=== PATIENT | male | born 1985 | race African-American/Black ===

== ENCOUNTER 2017-02-13 18:54 | Inpatient (IN) | payer OTHER ==
[~2017-02-13] VITALS: Ht 170.2 cm; Wt 158.8 kg
--- NOTE | ~2017-02-13 | O ---
[facility] [place] [address] OPERATIVE REPORT Name: CECILIA LEIVA Room #: 244-P [facility] IN M.R.#: [id number] Admission: 02/13/17 Attend Phys: Deven Cuellar MD Discharge: Date of : 83 Report #: [id number] THIS REPORT FOR: //name// CC: Alan Cuellar DATE OF SERVICE: 02/15/2017 PROCEDURE: Intraoral incision and drainage of right steamboat pilot space abscess, CPT CODE 71595. PREOPERATIVE DIAGNOSIS: Right steamboat pilot space abscess. POSTOPERATIVE DIAGNOSIS: Right steamboat pilot space abscess. SURGEON: Alan Bocanegra M.D. ANESTHESIA: General. ESTIMATED BLOOD LOSS: 20 mL. COMPLICATIONS: None. SPECIMENS: Pus was sent for culture, both aerobic, anaerobic, fungal and acid fast bacilli. FINDINGS: The patient was found to have a large abscess in the right steamboat pilot space in the area of the medial pterygoid. INDICATIONS: The patient is a 31-year-old gentleman who presented to the emergency room with complaint of increased throat pain and swelling. CT scan revealed a 2.5-cm abscess in the right steamboat pilot space. It is decided that he would benefit from incision and drainage of this and the risks, benefits and alternatives were discussed with him and his family and they agreed to proceed. DESCRIPTION OF PROCEDURE: After informed consent was obtained, the patient was taken to the operating room and placed in supine position. He underwent general anesthesia with endotracheal intubation. He was prepped and draped in the usual fashion and timeout was performed. The correct patient and procedure were identified. A Monica-Ronak retractor was gently inserted into the oral cavity, and the patient was placed into suspension. An 18-gauge needle was inserted just medial to the ramus of the mandible and aspirated, there was no return of pus; however, after withdrawal of the needle, there was immediate thick purulent material which extruded through the puncture site. This was cultured and sent off for microbiology. Following this, an incision was made at the puncture site [address] [address] OPERATIVE REPORT Name: CECILIA LEIVA Room #: 244-P [facility] IN M.R.#: [id number] Admission: 02/13/17 Attend Phys: Deven Cuellar MD Discharge: Date of : 83 Report #: [id number] of the needle using a 15 blade scalpel along the pterygomandibular raphe. A hemostat was then inserted into the incision and this was spread open into the abscess cavity. There was significant amount of pus, which was evacuated by applying pressure out through this incision. Once all the purulent material had been evacuated, the abscess cavity was copiously irrigated with bacitracin irrigation. Hemostasis was then achieved using suction cautery as well as by holding pressure. Once hemostasis was found to be adequate, all instrumentation was withdrawn from the patient. He was turned back over to the anesthesia service. There were no complications during the procedure and all counts were reported as correct. DISPOSITION: The patient will be transferred to the ICU and will remain intubated for airway protection due to airway swelling. He will remain on broad spectrum IV antibiotics and once cultures come back, the antibiotics can be narrowed down. He will work towards weaning and extubation over the next few days. <ELECTRONICALLY SIGNED> By: Alan Bocanegra MD 02/16/17 1503 [id number] Alan Bocanegra MD /nt
--- NOTE | ~2017-02-13 | D ---
[facility] [place] [address] DISCHARGE SUMMARY Name: CECILIA LEIVA Room #: 440-P [facility] IN M.R.#: [id number] Admission: 02/13/17 Attend Phys: Deven Cuellar MD Discharge: 02/17/17 Date of : 83 Report #: [id number] THIS REPORT FOR: //name// CC: Alan Cuellar DATE OF SERVICE: 02/17/2017 DISCHARGE DIAGNOSES: 1. 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 2. Hypertension. 3. Morbid obesity. 4. Hypothyroidism. CONSULTS: ENT. PROCEDURES: He had I and D of his mash filter press operator abscess on February 15 without any significant complications. HOSPTIAL COURSE: However, after the surgery, he was kept intubated for airway protection and monitoring in the ICU. The following day on the , he was extubated without problems. He was able to maintain his airway and started diet and did well with that. He has had no further fever or chills. His white count on admission was 21, but actually he is afebrile now and feeling much better and anxious to go home. Denies any other complaints. He will go home on clindamycin. His initial strep culture was negative, but his jaw cultures are negative at 24 hours. DISCHARGE DISPOSITION: To home. DISCHARGE PHYSICAL EXAMINATION: VITAL SIGNS: Temperature 98, pulse 62, blood pressure 135/50. GENERAL: He is awake, alert, answering questions appropriately, no acute respiratory distress. HEENT: Normocephalic. Right cheek is a little bit swollen, but he indicates this is much improved, he has got minimal pain, no drainage. Oropharynx is clear and airway patent. CARDIOVASCULAR: Regular rate and rhythm. No murmurs. LUNGS: Clear to auscultation bilaterally. No crackles or wheezes. ABDOMEN: Soft, no distention or tenderness. EXTREMITIES: No edema. NEUROLOGIC: Nonfocal. DISCHARGE MEDICATIONS: Clindamycin 450 p.o. t.i.d. for 10 days, Lactinex 1 p.o. daily, [place] p.r.n., lisinopril 2.5 daily, Synthroid 88 mcg daily, vitamin D [address] [address] DISCHARGE SUMMARY Name: CECILIA LEIVA Room #: 440-[facility] IN M.R.#: [id number] Admission: 02/13/17 Attend Phys: Deven Cuellar MD Discharge: 02/17/17 Date of : 83 Report #: [id number] 1000 units daily, folic acid 1 daily. DIET: Regular diet as tolerated. ACTIVITY: As tolerated. FOLLOWUP: With primary care in 1 week with repeat labs. Follow up with ENT in 1 week and to seek immediate medical attention if symptoms worsen, recur or if he has any significant medical concerns. Discharge plan took 32 minutes. I explained to him the discharge diagnoses, treatment plan and appropriate followup in detail and he had no further questions. By: [id number] Kristyn Butt MD /nt
--- NOTE | ~2017-02-13 | HC ---
[facility] [place] [address] CONSULTATION Name: CECILIA LEIVA Room #: 440-P [facility] IN ..#: [id number] Admission: 02/13/17 Attend Phys: Deven Cuellar MD Discharge: 02/17/17 Date of : 83 Report #: [id number] THIS REPORT FOR: //name// CC: Alan Cuellar PRIMARY CARE PHYSICIAN: Dr. Indio Sousa. REFERRAL PHYSICIAN: Dr. Deven Cuellar. REASON FOR REFERRAL: Ventilator management. HISTORY OF PRESENT ILLNESS: The patient is a 32-year-old white male who presents to the Emergency Room with swelling and pain on the right side of the neck. He was found to have parapharyngeal abscess. The patient then went to the OR for incision and drainage of the right stay cutter space abscess. Postoperatively, the patient was electively left on a ventilator overnight. A pulmonary consultation was requested. The patient is much awake today. He is following commands. His spontaneous breathing trials are adequate with respiratory rate less than 20 breaths per minutes, ____ ventilation around 10 liters per minute. He is awake, alert in no distress and following commands as mentioned above. PAST MEDICAL HISTORY: Otherwise, notable for hypertension, hypothyroidism. PAST SURGICAL HISTORY: Unremarkable. ALLERGIES: None noted. HOME MEDICATIONS: Are reviewed, which include lisinopril, Synthroid, vitamin D supplements, vitamin B12 supplements and hydrochlorothiazide. FAMILY HISTORY: Notable for diabetes in his sisters. He does not know the health of his parents. SOCIAL HISTORY: He is a lifetime nonsmoker. Denies any alcohol use. REVIEW OF SYSTEMS: Deferred as the patient is still intubated. PHYSICAL EXAMINATION: GENERAL: He is awake, alert, in no apparent distress. He is following commands. VITAL SIGNS: Temperature is 98 degrees Fahrenheit, pulse is 67, respiratory rate is 17, blood pressure 109/63 mmHg, saturation is 100%. [facility] [address] [place] [address] CONSULTATION Name: CALICECILIA Room #: [facility] IN [facility].#: [id number] Admission: 02/13/17 Attend Phys: Deven Cuellar MD Discharge: 02/17/17 Date of : 83 Report #: [id number] HEENT: Normocephalic, atraumatic. He is orally intubated. NECK: Revealed moderate swelling in the right side. CHEST: Breath sounds are clear bilaterally without any rales or wheezes. CARDIOVASCULAR: Normal S1, S2. There is no murmurs or gallop. There is no JVD. There is no carotid bruit. Pulses are 2+/4+ bilaterally. ABDOMEN: Soft, nontender, no organomegaly or masses felt. GENITOURINARY: Deferred. RECTAL: Deferred. EXTREMITIES: There is no edema, cyanosis or clubbing. LABORATORY DATA: Electrolytes are normal. WBC is 28,000, hemoglobin 12.9 with no significant bandemia, arterial blood gas revealed pH 7.40, pCO2 of 38, pO2 116 on FiO2 of 30%. IMPRESSION: 1. Right stay cutter space abscess status post incision and range. 2. Acute hypoxic respiratory failure, expectant following parapharyngeal abscess as mentioned above. 3. Hypertension. 4. Hypothyroidism. 5. Leukocytosis due to above infectious process. RECOMMENDATIONS: We will proceed with extubation. Keep saturation 90-92%. Incentive spirometries will be recommended. DVT and GI prophylaxis will be addressed accordingly. Thank you for this consultation. <ELECTRONICALLY SIGNED> By: Lane Cardozo MD 02/21/[id number]ozo MD /nt
[2017-02-13 18:56] VITALS: BP 158/103
[2017-02-13] MEDS ORDERED: HYDROCHLOROTH12.5 M1 PO (20:56)
[2017-02-13 22:00] LABS: HEMATOCRIT 44.2 % (42.0-52.0); HEMOGLOBIN 15.1 gm/dL (14.0-18.0); MANUAL DIFF YES; MCH 30.9 pg (26.0-34.0); MCHC 34.2 g/dL (28.0-37.0); MCV 90.3 fL (80.0-100.0); PLATELET COUNT 346 thou/uL (150-400); RDW 13.5 % (10.5-14.5); WBC 21.2 thou/uL (4.0-11.0)
[2017-02-13 22:09] LABS: CALCIUM 9.5 mg/dL (8.5-10.1); CREATININE 1.2 mg/dL (0.7-1.3); POTASSIUM 4.1 mmol/L (3.5-5.1)
[2017-02-13 22:16] LABS: ABSOLUTE NEUTROPHILS 13.6 thou/uL (1.4-8.2); TOTAL CELL COUNT 100
[2017-02-13 22:17] LABS: ANISOCYTOSIS 1+
[2017-02-14 00:23] VITALS: BP 127/45
[2017-02-14] MEDS ORDERED: LISINOPRIL2.5 MG PO (00:42)
[2017-02-14] MEDS ORDERED: FOLBIC RF TABL1 EACH PO (00:43)
[2017-02-14] MEDS ORDERED: VITAMIN D1000 UNI1 PO (00:43)
[2017-02-14] MEDS ORDERED: LEVOTHYROXIN0.088 MG PO (00:43)
[2017-02-14 04:02] VITALS: BP 109/44
[2017-02-14 07:58] VITALS: BP 17/86
[2017-02-14 12:35] VITALS: BP 136/78
[2017-02-14 16:49] VITALS: BP 135/78
[2017-02-14 19:31] VITALS: BP 136/78
[2017-02-15] VITALS (28 sets, daily range): BP systolic 97–212; BP diastolic 60–167
[2017-02-15 03:03] LABS: HEMATOCRIT 41.1 % (42.0-52.0); HEMOGLOBIN 13.6 gm/dL (14.0-18.0); MCH 30.2 pg (26.0-34.0); MCHC 33.1 g/dL (28.0-37.0); MCV 91.1 fL (80.0-100.0); RBC 4.51 mil/uL (4.50-6.00); RDW 13.7 % (10.5-14.5); WBC 24.3 thou/uL (4.0-11.0)
[2017-02-15 03:10] LABS: CALCIUM 9.1 mg/dL (8.5-10.1); CREATININE 1.2 mg/dL (0.7-1.3); POTASSIUM 4.1 mmol/L (3.5-5.1)
[2017-02-15 18:57] LABS: ABG SAMPLE TYPE ARTERIAL; BE(vivo) -3.3 mmol/L (-2 to +3); HCO3 22.1 mmol/L (22.0-26.0); LACTATE 1.74 mmol/L (0.5-2.0); O2(CT) 21.5 mL/dL (15.0-23.0); O2Hb 98.4 % (92.0-98.0); PO2 395.5 mmHg (80.0-100.0); sO2 99.8 % (92.0-98.0); tCO2 23.4 mmol/L (24.0-30.0)
[2017-02-15 18:58] LABS: STICK SITE R.RADIAL; TIDAL VOLUME 600 ml
[2017-02-16] VITALS (33 sets, daily range): BP systolic 81–157; BP diastolic 40–99
[2017-02-16 04:31] LABS: HEMATOCRIT 38.5 % (42.0-52.0); HEMOGLOBIN 12.9 gm/dL (14.0-18.0); MCH 30.4 pg (26.0-34.0); MCHC 33.4 g/dL (28.0-37.0); MCV 91.2 fL (80.0-100.0); PLATELET COUNT 324 thou/uL (150-400); RBC 4.22 mil/uL (4.50-6.00); RDW 13.6 % (10.5-14.5)
[2017-02-16 04:33] LABS: MANUAL DIFF YES
[2017-02-16 04:35] LABS: CALCIUM 8.4 mg/dL (8.5-10.1); POTASSIUM 4.7 mmol/L (3.5-5.1)
[2017-02-16 04:58] LABS: ABSOLUTE NEUTROPHILS 24.1 thou/uL (1.4-8.2); TOTAL CELL COUNT 100
[2017-02-16 09:39] LABS: ABG SAMPLE TYPE ARTERIAL; BE(vivo) -0.7 mmol/L (-2 to +3); HCO3 23.8 mmol/L (22.0-26.0); LACTATE 1.05 mmol/L (0.5-2.0); O2(CT) 18.7 mL/dL (15.0-23.0); O2Hb 97.1 % (92.0-98.0); PCO2 38.9 mmHg (35.0-45.0); PO2 116.9 mmHg (80.0-100.0); pH 7.404 (7.360-7.450); sO2 98.3 % (92.0-98.0)
[2017-02-16 09:40] LABS: Pressure Support 8 cm H20; STICK SITE L.RADIAL
[2017-02-17 04:35] VITALS: BP 133/76
[2017-02-17] MEDS ORDERED: HYDROCODON-ACE1 EA12 PO (10:27)
[2017-02-17] MEDS ORDERED: CLEOCIN HCL150 MG PO (10:27)
[2017-02-17] MEDS ORDERED: PROBIOTIC1 EAC1 PO (10:27)
[2017-02-17 11:50] VITALS: BP 135/55
[2017-02-17 12:42] VITALS: BP 135/55
[2017-02-17 15:19] VITALS: BP 135/55
== END 2017-02-17 14:50 | disposition home or self-care (01) | DRG 871 ==
LOC: EDBD 18:54 → ER 18:54 → 2N 23:15 → EROBS 23:15 → 2N 02-14 00:09 → ICU 02-15 18:18 → 4S 02-16 17:17
PROVIDERS: Internal Medicine; Nurse Practitioner Acute Care; Otolaryngology; Physician Assistant
PROC: 0J943ZZ Drainage of Right Neck Subcutaneous Tissue and Fascia, Percutaneous Approach (ICD-10-PCS; principal; 2017-02-15)
PROC: 5A1935Z Respiratory Ventilation, Less than 24 Consecutive Hours (ICD-10-PCS; 2017-02-15)
DX: A41.9 Sepsis, unspecified organism (principal); J96.01 Acute respiratory failure with hypoxia; K12.2 Cellulitis and abscess of mouth; J39.0 Retropharyngeal and parapharyngeal abscess; E87.1 Hypo-osmolality and hyponatremia; Z68.43 Body mass index [BMI] 50.0-59.9, adult; I10 Essential (primary) hypertension; E03.9 Hypothyroidism, unspecified; E66.01 Morbid (severe) obesity due to excess calories; Z79.899 Other long term (current) drug therapy; Z83.3 Family history of diabetes mellitus
CPT/HCPCS: 10078; 10081; 10100; 50101; 50386; 50398; 62110; 62900; 64031

== ENCOUNTER 2021-07-07 17:42 | Emergency (ER) | payer OTHER ==
[~2021-07-07] VITALS: Ht 162.6 cm; Wt 174.6 kg
[~2021-07-07 17:42] MED LIST: CLEOCIN HCL150 MG PO; FOLBIC RF TABL1 EACH PO; HYDROCHLOROTH12.5 M1 PO; HYDROCODON-ACE1 EA12 PO; LEVOTHYROXIN0.088 MG PO; LISINOPRIL2.5 MG PO; PROBIOTIC1 EAC1 PO; VITAMIN D1000 UNI1 PO
[2021-07-07] MEDS ORDERED: AMLODIPINE BESY10 MG PO (19:42)
[2021-07-07] MEDS ORDERED: TESTOSTERO200 MG/1 M IM (19:43)
[2021-07-07] MEDS ORDERED: LISINOPRIL-HCT1 EAC1 PO (19:43)
[2021-07-07] MEDS ORDERED: LEVOTHYROXINE88 MCG PO (19:44)
[2021-07-07] MEDS ORDERED: ALLOPURINOL 10100 M1 PO (19:44)
[2021-07-07 22:03] VITALS: BP 140/80
== END 2021-07-07 22:04 | disposition home or self-care (01) ==
LOC: ER 17:42
DX: T78.3XXA Angioneurotic edema, initial encounter (principal); I10 Essential (primary) hypertension; E03.9 Hypothyroidism, unspecified; Z79.899 Other long term (current) drug therapy